=== PATIENT | female | born 1965 | race Caucasian/White ===

== ENCOUNTER 2016-11-27 14:45 | Emergency (ER) | payer BC, OTHER ==
[~2016-11-27] VITALS: Ht 167.6 cm; Wt 99.8 kg
[~2016-11-27 14:45] MED LIST: ADIPEX-P37.5 M1 PO; LEVOTHYROXINE 0.15MG PO; NAPROSYN500 MG PO; NORCO 5-325 TA1 EACH PO; VALIUM5 MG PO
[2016-11-27] MEDS ORDERED: MOBIC15 MG PO (16:45)
[2016-11-27] MEDS ORDERED: NORCO 5-325 TA1 EACH PO (16:52)
[2016-11-27] MEDS ORDERED: CRUTCHES MISCELL (16:52)
[2016-11-27 17:57] VITALS: BP 121/70
== END 2016-11-27 16:46 | disposition home or self-care (01) ==
LOC: ER 14:45
DX: S93.402A Sprain of unspecified ligament of left ankle, initial encounter (principal); E78.00 Pure hypercholesterolemia, unspecified; M41.9 Scoliosis, unspecified; Z91.018 Allergy to other foods; Z90.710 Acquired absence of both cervix and uterus; Z87.891 Personal history of nicotine dependence; W10.9XXA Fall (on) (from) unspecified stairs and steps, initial encounter; Y93.89 Activity, other specified; Y92.89 Other specified places as the place of occurrence of the external cause; Y99.8 Other external cause status